=== PATIENT | male | born 1960 | race Hispanic/Latino ===

== ENCOUNTER → 2021-04-11 | Outpatient (CLI) | payer OTHER | LOC: CT 15:23 | PROVIDERS: ATTEND Family Medicine | DX: S09.90XA Unspecified injury of head, initial encounter (principal); R51.9 Headache, unspecified; S16.1XXA Strain of muscle, fascia and tendon at neck level, initial encounter; S00.03XA Contusion of scalp, initial encounter; S00.01XA Abrasion of scalp, initial encounter | CPT/HCPCS: 70450; 72125 ==

== ENCOUNTER → 2021-05-19 | Outpatient (CLI) | payer OTHER | LOC: MRI 08:49 | PROVIDERS: ATTEND Family Medicine | DX: S09.90XD Unspecified injury of head, subsequent encounter (principal); M50.322 Other cervical disc degeneration at C5-C6 level; W19.XXXA Unspecified fall, initial encounter | CPT/HCPCS: 72141 ==